=== PATIENT | male | born 1940 | race Caucasian/White ===

== ENCOUNTER 2016-07-14 23:51 | Emergency (ER) | payer MEDICARE ==
[2016-07-15] MEDS ORDERED: DUONEB INH ONE ×2 (02:08)
[2016-07-15] MEDS ORDERED: PREDNISONE 10 MG TAB ONE (02:09)
[2016-07-15] MEDS ORDERED: PREDNISONE 50 MG TAB ONE (02:09)
== END 2016-07-15 03:17 | disposition home or self-care (01) ==
LOC: ER 23:51
CPT/HCPCS: 36415 ×2; 71010 ×2; 80053 ×2; 82553 ×2; 83880 ×2; 84484 ×2; 85025 ×2; 93005 ×2; 94640 ×2; 99284; J7512